=== PATIENT | male | born 1980 | race Caucasian/White ===

== ENCOUNTER 2021-02-25 15:55 | Emergency (ER) | payer BC, OTHER ==
[~2021-02-25 15:55] MED LIST: BENTYL 10MG CAP10 MG PO; COLACE100 MG PO; IBUPROFEN800 MG PO; ZOFRAN 4 MG TAB4 MG PO
[2021-02-25] MEDS ORDERED: FLORASTOR250 MG PO (18:22)
[2021-02-25] MEDS ORDERED: ZOFRAN ODT 4 MG4 MG SL (18:22)
== END 2021-02-25 18:36 | disposition home or self-care (01) ==
LOC: ER1 15:55
DX: J20.9 Acute bronchitis, unspecified (principal); Z20.822 Contact with and (suspected) exposure to COVID-19; R11.2 Nausea with vomiting, unspecified; R19.7 Diarrhea, unspecified; F17.220 Nicotine dependence, chewing tobacco, uncomplicated
CPT/HCPCS: 71045; 93005; 99285; U0002